=== PATIENT | female | born 1980 | race Asian ===

== ENCOUNTER 2016-07-04 14:38 | Inpatient (IN) | payer SELFPAY ==
[~2016-07-04] VITALS: Ht 162.6 cm; Wt 54.4 kg
[~2016-07-04 14:38] MED LIST: UNOBMED
[2016-07-04 14:56] VITALS: BP 137/77
--- NOTE | 2016-07-04 14:58 | Emergency Room Report ---
History of Present Illness General Chief Complaint: Dyspnea/Respdistress Source: Patient, EMS Present Illness HPI Patient presents with complaints of chest pain right-sided patient has a history of asthma Has had cold symptoms for the past 4 days however recently she began having increased pain with cough and inspiration Denies any vomiting or diarrhea She feels dehydrated Denies any neck pain or photophobia denies any recent travel denies any leg swelling Pain is 6/10 localized to the right mid chest area Allergies: Coded Allergies: ASPIRIN (Verified Allergy, Severe, dyspnea, 07/04/16) IBUPROFEN (Verified Allergy, Severe, dyspnea, 07/04/16) MORPHINE (Verified Allergy, Unknown, 07/04/16) PENICILLINS (Verified Allergy, Unknown, 07/04/16) Patient History Past Medical History: see triage record Pertinent Family History: none Reviewed Nursing Documentation: PMH: Agreed, PSxH: Agreed Nursing Documentation-PMH Hx Asthma: Yes Review of Systems All Other Systems: negative except mentioned in HPI Physical Exam Vital Signs Date Time Temp Pulse Resp B/P Pulse Ox O2 Delivery O2 Flow Rate FiO2 07/04/16 14:32 117 26 137/77 93 [id number] EP Interpretation: reviewed, normal General Appearance: mild distress - Appears uncomfortable and in pain Head: normocephalic, atraumatic Eyes: bilateral eye EOMI, bilateral eye PERRL ENT: hearing grossly normal, normal pharynx, TMs + canals normal, uvula midline Neck: full range of motion, supple, no meningismus, no bony tend Respiratory: no rhonchi, no respiratory distress, no retraction, no accessory muscle use, wheezing - Diffusely Cardiovascular #1: normal peripheral pulses, regular rate, rhythm, no edema, no gallop, no JVD, no murmur Gastrointestinal: normal bowel sounds, non tender, soft, no mass, no organomegaly, non-distended, no guarding, no hernia, no pulsatile mass, no rebound Genitourinary: no CVA tenderness Musculoskeletal: normal inspection Neurologic: oriented x3, responsive, electronic assembler III-XII nml as tested, motor strength/ tone normal, sensory intact Psychiatric: mood/affect normal Skin: normal color, no rash, warm/dry, palpation normal Lymphatic: normal inspection, no adenopathy Procedures Critical Care Time Critical Care Time 50 minutes for critical presentation worsening respiratory distress requiring multiple re\re evaluations not including any procedural time Medical Decision Making Diagnostic Impression: Primary Impression: Respiratory distress Additional Impression: Acute asthma exacerbation ER Course Patient is a fairly complex patient with multiple differential to consideration including but not limited to cardiac cardiopulmonary and vascular emergencies Initially the patient was provided with repeat breathing treatments she continued to complain of discomfort in the right mid upper chest area Patient was also provided with Toradol Patient appears to have worsened at that point Further magnesium and breathing treatments were provided CT angiogram chest was obtained for pulmonary embolism And there was no obvious findings At a later time after further questioning patient reports that she is allergic to aspirin and Motrin I did have a discussion with her and the family regarding the importance of providing allergy medication As this is life threatening and likely cause some of her reaction after receiving Toradol Patient also reports allergies to morphine After further intervention patient has improved However still showing signs of asthma exacerbation And admitted for further inpatient care Labs Test 07/04/16 15:00 07/04/16 16:09 White Blood Count 8.7 K/UL (4.8-10.8) Red Blood Count 4.66 M/UL (4.20-5.40) Hemoglobin 14.2 G/DL (12.0-16.0) Hematocrit 42.5 % (37.0-47.0) Mean Corpuscular Volume 91 FL (80-99) Mean Corpuscular Hemoglobin 30.6 PG (27.0-31.0) Mean Corpuscular Hemoglobin Concent 33.5 G/DL (32.0-36.0) Red Cell Distribution Width 11.1 % (11.6-14.8) Platelet Count 373 K/UL (150-450) Mean Platelet Volume 6.5 FL (6.5-10.1) Neutrophils (%) (Auto) % (45.0-75.0) Lymphocytes (%) (Auto) % (20.0-45.0) Monocytes (%) (Auto) % (1.0-10.0) Eosinophils (%) (Auto) % (0.0-3.0) Basophils (%) (Auto) % (0.0-2.0) Differential Total Cells Counted 100 Neutrophils % (Manual) 45 % (45-75) Lymphocytes % (Manual) 25 % (20-45) Monocytes % (Manual) 5 % (1-10) Eosinophils % (Manual) 24 % (0-3) Basophils % (Manual) 0 % (0-2) Band Neutrophils 1 % (0-8) Platelet Estimate Adequate Platelet Morphology Normal Red Blood Cell Morphology Normal D-Dimer 588 ng/mL (<500) Sodium Level 140 mEQ/L (135-145) Potassium Level 4.0 mEQ/L (3.4-4.9) Chloride Level 99 mEQ/L (98-107) Carbon Dioxide Level 27 mEQ/L (20-30) Anion Gap 14 (5-15) Blood Urea Nitrogen 5 mg/dL (7-23) Creatinine 0.7 mg/dL (0.5-0.9) Estimat Glomerular Filtration Rate > 60 mL/min (>60) Glucose Level 127 mg/dL (74-106) Calcium Level 9.3 mg/dL (8.6-10.2) Total Bilirubin 0.4 mg/dL (0.0-1.2) Aspartate Amino Transf (AST/SGOT) 46 U/L (5-40) Alanine Aminotransferase (ALT/SGPT) 57 U/L (3-33) Alkaline Phosphatase 78 U/L (35-104) Total Creatine Kinase 287 U/L (26-140) Creatine Kinase MB 4.9 ng/mL (< 3.8) Creatine Kinase MB Relative Index 1.7 Troponin I < 0.30 ng/mL (<=0.30) Total Protein 6.1 g/dL (6.6-8.7) Albumin 3.9 g/dL (3.5-5.2) Globulin 2.2 g/dL Albumin/Globulin Ratio 1.7 (1.0-2.7) Urine HCG, Qualitative Negative EKG Diagnostic Results Rate: tachycardiac Rhythm: other - Sinus tach ST Segments: other - Nonspecific ST and T-wave changes Rhythm Strip Diag. Results EP Interpretation: yes Rate: 135 Rhythm: no PVC's, no ectopy, other - sinus tach Chest X-Ray Diagnostic Results EP Interpretation: Yes Findings: no consolidation, no effusion, no pneumothorax Number of Views: 1 CT/MRI/US Diagnostic Results CT/MRI/US Diagnostic Results : Impression CT chest: Suboptimal, no obvious central PE Last Vital Signs Date Time Temp Pulse Resp B/P Pulse Ox O2 Delivery O2 Flow Rate FiO2 07/04/16 14:32 117 26 137/77 93 Disposition: ADMITTED INPATIENT Condition: Serious YANET WARD D.O.b 6, 2017 14:58
[2016-07-04] MEDS ORDERED: Levalbuterol Inh UD 1.25mg/0.5ml HHN ONE ×2 (15:00→16:00)
[2016-07-04] MEDS ORDERED: Solu-MEDROL 125mg Inj IVP ONE (15:00)
[2016-07-04] MEDS ORDERED: Ketorolac 30mg Inj IV ONE (15:00)
[2016-07-04 15:31] LABS: MEAN CORPUSCULAR HEMOGLOBIN 30.6 PG (27.0-31.0); MEAN CORPUSCULAR HGB CONC 33.5 G/DL (32.0-36.0); MEAN CORPUSCULAR VOLUME 91 FL (80-99); MEAN PLATELET VOLUME 6.5 FL (6.5-10.1); PLATELET COUNT 373 K/UL (150-450); RED BLOOD COUNT 4.66 M/UL (4.20-5.40); RED CELL DISTRIBUTION WIDTH 11.1 % (11.6-14.8); WHITE BLOOD COUNT 8.7 K/UL (4.8-10.8)
[2016-07-04 15:47] LABS: TROPONIN I < 0.30 ng/mL (<=0.30)
[2016-07-04 15:51] LABS: ALANINE AMINOTRANSFERASE 57 U/L (3-33); ALBUMIN/GLOBULIN RATIO 1.7 (1.0-2.7); ANION GAP 14 (5-15); ASPARTATE AMINO TRANSFERASE 46 U/L (5-40); CALCIUM 9.3 mg/dL (8.6-10.2); CARBON DIOXIDE 27 mEQ/L (20-30); CHLORIDE 99 mEQ/L (98-107); CREATININE 0.7 mg/dL (0.5-0.9); GLOMERULAR FILTRATION RATE > 60 mL/min (>60); HEMOLYSIS 2; SODIUM 140 mEQ/L (135-145); TOTAL PROTEIN 6.1 g/dL (6.6-8.7)
[2016-07-04 16:00] VITALS: BP 127/70
[2016-07-04] MEDS ORDERED: Diazepam 10mg/2ml Inj IV ONE (16:00)
[2016-07-04 16:01] LABS: CKMB 4.9 ng/mL (< 3.8)
[2016-07-04] MEDS ORDERED: Enoxaparin 60mg Inj SUBQ ONE (16:15)
[2016-07-04] MEDS ORDERED: EPINEPHrine 1mg/1ml Amp SUBQ ONE (16:15)
[2016-07-04] MEDS ORDERED: DiphenhydrAMINE 50mg/ml Inj IVP ONE (16:45)
[2016-07-04 16:46] LABS: BAND NEUTROPHILS % (MANUAL) 1 % (0-8); BASOPHILS % (MANUAL) 0 % (0-2); EOSINOPHILS % (MANUAL) 24 % (0-3); LYMPHOCYTES % (MANUAL) 25 % (20-45); NEUTROPHILS % (MANUAL) 45 % (45-75); PLATELET ESTIMATE ADEQUATE; TOTAL CELLS COUNTED 100
[2016-07-04 16:47] LABS: PLATELET MORPHOLOGY NORMAL
[2016-07-04 17:00] VITALS: BP 128/74
[2016-07-04 18:00] VITALS: BP 138/79
[2016-07-04] MEDS ORDERED: Norco 10mg/325mg tab ORAL ONE (18:30)
[2016-07-04] MEDS ORDERED: BENADRYL25 M3 PO (18:56)
[2016-07-04] MEDS ORDERED: ARMOUR THYROID30 MG ORAL (18:56)
[2016-07-04 19:00] VITALS: BP 141/94
[2016-07-04 20:00] VITALS: BP 140/78
[2016-07-04] MEDS ORDERED: LORazepam Inj 2mg/ml 1ml IV PRN (20:45)
[2016-07-04] MEDS ORDERED: Nitroglycerin Subl 0.4mg tab (Bottle Of 25) SL PRN (20:45)
[2016-07-04] MEDS ORDERED: Norco 5mg/325mg tab ORAL PRN (21:30)
[2016-07-04] MEDS: Theophylline ER 100mg ORAL SCH (21:40)
[2016-07-04] MEDS ORDERED: Heparin 5000 units/ml inj SUBQ SCH (22:00)
[2016-07-04] MEDS: NovoLOG Insulin Flexpen SUBQ SCH (22:08)
[2016-07-04] MEDS: DuoNeb 0.5-3(2.5)mg/3ml neb HHN PRN (23:39)
[2016-07-04] MEDS: Solu-MEDROL 125mg Inj IV SCH (23:51)
[2016-07-05] VITALS: BP 129/106
[2016-07-05] MEDS: DuoNeb 0.5-3(2.5)mg/3ml neb HHN PRN ×2 (05:21→21:24)
[2016-07-05] MEDS: Solu-MEDROL 125mg Inj IV SCH ×2 (05:39→22:03)
[2016-07-05] MEDS: NovoLOG Insulin Flexpen SUBQ SCH ×4 (06:28→22:05)
[2016-07-05 08:06] VITALS: BP 130/58
[2016-07-05] MEDS: Theophylline ER 100mg ORAL SCH (08:52)
--- NOTE | 2016-07-05 09:09 | Diagnostic Imaging Report ---
ndication: SOB Technique: IV administration nonionic contrast. Spiral acquisitions obtained from the lung bases to the lung apices. Multiplanar and 3-D reconstructions were generated. Total dose length product 730 mGycm. CTDIvol(s) 12, 12, 88, 20 mGy Comparison: None Findings: Pulmonary arterial opacification is suboptimal, essentially nondiagnostic or large central pulmonary emboli. No gross large vessel Central pulmonary emboli are demonstrated however. There is also motion artifact degrading the images. No evidence of thoracic aortic aneurysm or dissection. No pulmonary arterial dilatation or right ventricular dilatation. Some pleural and parenchymal scarring is seen in the lung apices bilaterally. There are scattered areas of groundglass opacity, primarily in the right middle lobe and lingula. This may to some extent be related to respiratory motion artifact. The remainder the lungs and pleural space are clear. No effusions, nodules, masses, or dense consolidation demonstrated. The heart size is normal. No evidence of pericardial effusion. There is some edema of the mediastinal fat. No mediastinal or hilar mass or adenopathy demonstrated. There are bilateral breast implants. No axillary mass or adenopathy. Chest wall mass or adenopathy. The included upper abdominal viscera are unremarkable Impression: Very limited exam, peripheral pulmonary emboli not excludable. No gross central pulmonary emboli Minimal nonspecific bilateral pulmonary parenchymal groundglass opacities, suspect infarct artifactual Bilateral breast implants This agrees with the preliminary interpretation provided overnight by Dr. Diaz The CT scanner at [facility] is accredited by the [employer] and the scans are performed using protocols designed to limit radiation exposure to as low as reasonably achievable to attain images of sufficient resolution adequate for diagnostic evaluation.
--- NOTE | 2016-07-05 09:09 | Diagnostic Imaging Report ---
Indication: Chest pain Technique: One view of the chest Comparison: none Findings: Lungs and pleural spaces are clear. Heart size is normal. Is evidence of bilateral breast implants Impression: No acute process
[2016-07-05] MEDS: Promethazine Plain 6.25mg/5ml ORAL PRN (10:04)
[2016-07-05 11:29] VITALS: BP 121/71
--- NOTE | 2016-07-05 11:32 | History and Physical ---
History of Present Illness General Date patient seen: Jul 05, 2016 Reason for Hospitalization: Dyspnea/Respdistress Present Illness HPI 35 year old female with hx of Asthma, presented to ER with CC of chest pain right-sided, cold symptoms for the past 4 days She had a CT angio in ER which ruled out PE but showed some pleural based infiltrate. Allergies: Coded Allergies: ASPIRIN (Verified Allergy, Severe, dyspnea, 07/04/16) IBUPROFEN (Verified Allergy, Severe, dyspnea, 07/04/16) MORPHINE (Verified Allergy, Unknown, 07/04/16) PENICILLINS (Verified Allergy, Unknown, 07/04/16) Medication History Scheduled Thyroid* (Starke Thyroid*), 30 MG ORAL DAILY, (Reported) Miscellaneous Medications Diphenhydramine HCl (Benadryl), 50 MG PO, (Reported) Patient History Healthcare decision maker Resuscitation status Full Code Advanced Directive on File Past Medical/Surgical History Past Medical/Surgical History: (1) Hypothyroidism Review of Systems All Other Systems: negative except mentioned in HPI Physical Exam General Appearance: WD/WN Lines, tubes and drains: peripheral, central line HEENT: normocephalic, atraumatic Neck: non-tender, normal alignment Respiratory/Chest: chest wall non-tender, lungs clear Breasts: no masses Cardiovascular/Chest: normal rate Abdomen: normal bowel sounds, non tender Extremities: normal range of motion Last 24 Hour Vital Signs Date Time Temp Pulse Resp B/P Pulse Ox O2 Delivery O2 Flow Rate FiO2 07/05/16 10:57 110 20 95 Room Air 21 07/05/16 10:48 110 20 95 07/05/16 08:06 97.7 97 18 130/58 96 Room Air 07/05/16 07:43 104 07/05/16 07:23 110 20 Room Air 21 07/05/16 05:22 21 07/05/16 05:22 119 20 96 Room Air 21 07/05/16 05:21 118 20 95 Room Air 21 07/05/16 04:00 108 07/05/16 00:00 97.5 128 20 129/106 96 Room Air 07/05/16 00:00 130 07/04/16 23:44 125 20 95 Room Air 21 07/04/16 23:43 21 07/04/16 23:42 129 20 95 Room Air 21 07/04/16 23:41 127 20 Room Air 21 07/04/16 20:00 100.4 128 22 140/78 93 Room Air 07/04/16 19:05 99.0 128 25 138/79 97 Simple Mask 6.0 21 07/04/16 19:00 128 24 141/94 94 Simple Mask 6.0 07/04/16 18:52 99.0 07/04/16 18:00 134 25 138/79 97 Simple Mask 6.0 07/04/16 17:03 99.0 07/04/16 17:00 102 24 128/74 98 Nasal Cannula 2.0 07/04/16 16:09 123 20 93 Room Air 21 07/04/16 16:05 21 07/04/16 16:05 97 22 88 Room Air 21 07/04/16 16:00 108 28 127/70 94 Nasal Cannula 2.0 07/04/16 15:51 89 20 100 Room Air 21 07/04/16 15:15 21 07/04/16 15:15 82 20 100 Room Air 21 07/04/16 15:15 89 20 Room Air 21 07/04/16 14:56 117 26 07/04/16 14:56 99.0 114 26 137/77 93 07/04/16 14:32 117 26 137/77 93 Intake and Output 07/04/16 07/05/16 19:00 07:00 Intake Total 3200 ml 600 ml Balance 3200 ml 600 ml Intake Oral 500 ml IV Total 3200 ml 100 ml # Voids 1 1 Laboratory Tests Test 07/04/16 15:00 07/04/16 16:09 White Blood Count 8.7 K/UL (4.8-10.8) Red Blood Count 4.66 M/UL (4.20-5.40) Hemoglobin 14.2 G/DL (12.0-16.0) Hematocrit 42.5 % (37.0-47.0) Mean Corpuscular Volume 91 FL (80-99) Mean Corpuscular Hemoglobin 30.6 PG (27.0-31.0) Mean Corpuscular Hemoglobin Concent 33.5 G/DL (32.0-36.0) Red Cell Distribution Width 11.1 % (11.6-14.8) L Platelet Count 373 K/UL (150-450) Mean Platelet Volume 6.5 FL (6.5-10.1) Neutrophils (%) (Auto) % (45.0-75.0) Lymphocytes (%) (Auto) % (20.0-45.0) Monocytes (%) (Auto) % (1.0-10.0) Eosinophils (%) (Auto) % (0.0-3.0) Basophils (%) (Auto) % (0.0-2.0) Differential Total Cells Counted 100 Neutrophils % (Manual) 45 % (45-75) Lymphocytes % (Manual) 25 % (20-45) Monocytes % (Manual) 5 % (1-10) Eosinophils % (Manual) 24 % (0-3) H Basophils % (Manual) 0 % (0-2) Band Neutrophils 1 % (0-8) Platelet Estimate Adequate Platelet Morphology Normal Red Blood Cell Morphology Normal D-Dimer 588 ng/mL (<500) H Sodium Level 140 mEQ/L (135-145) Potassium Level 4.0 mEQ/L (3.4-4.9) Chloride Level 99 mEQ/L (98-107) Carbon Dioxide Level 27 mEQ/L (20-30) Anion Gap 14 (5-15) Blood Urea Nitrogen 5 mg/dL (7-23) L Creatinine 0.7 mg/dL (0.5-0.9) Estimat Glomerular Filtration Rate > 60 mL/min (>60) Glucose Level 127 mg/dL (74-106) H Calcium Level 9.3 mg/dL (8.6-10.2) Total Bilirubin 0.4 mg/dL (0.0-1.2) Aspartate Amino Transf (AST/SGOT) 46 U/L (5-40) H Alanine Aminotransferase (ALT/SGPT) 57 U/L (3-33) H Alkaline Phosphatase 78 U/L (35-104) Total Creatine Kinase 287 U/L (26-140) H Creatine Kinase MB 4.9 ng/mL (< 3.8) H Creatine Kinase MB Relative Index 1.7 Troponin I < 0.30 ng/mL (<=0.30) Total Protein 6.1 g/dL (6.6-8.7) L Albumin 3.9 g/dL (3.5-5.2) Globulin 2.2 g/dL Albumin/Globulin Ratio 1.7 (1.0-2.7) Urine HCG, Qualitative Negative Microbiology Date/Time Source Procedure Growth Status 07/04/16 16:30 Nasal Nares Influenza Types A,B Antigen (ULISES) - Final Complete Height (Feet): 5 Height (Inches): 4.00 Weight (Pounds): 120 Medications Current Medications Medications (Trade) Dose Ordered Sig/Dipti Route PRN Reason Start Time Stop Time Status Last Admin Dose Admin Acetaminophen (Tylenol) 650 mg Q4H PRN ORAL Mild Pain/Temp > 100.5 07/04/16 22:30 08/03/16 22:29 07/05/16 10:08 Albuterol/ Ipratropium (DuoNeb 0.5-3(2.5)mg/3ml) 3 ml Q4H PRN HHN dyspnea 07/04/16 20:45 07/09/16 20:44 07/05/16 05:21 Dextrose STAT PRN IV Hypoglycemia 07/04/16 20:45 08/03/16 20:44 Insulin Aspart (NovoLOG) BEFORE MEALS AND HS SUBQ 07/04/16 22:00 08/03/16 21:59 07/05/16 06:28 Levofloxacin (Levaquin) 100 ml @ 100 mls/hr Q24H IVPB 07/04/16 22:00 07/11/16 21:59 07/04/16 22:02 Lorazepam (Ativan 2mg/ml 1ml) 0.5 mg Q4H PRN IV For Anxiety 07/04/16 20:45 07/11/16 20:44 Methylprednisolone Sodium Succinate (Solu-MEDROL) 60 mg EVERY 12 HOURS IV 07/05/16 21:00 08/04/16 20:59 UNV Nitroglycerin (Ntg) 0.4 mg Q5M X 3 DOSES PRN SL Prn Chest Pain 07/04/16 20:45 08/03/16 20:44 Ondansetron HCl (Zofran) 4 mg Q6H PRN IVP Nausea & Vomiting 07/04/16 20:45 08/03/16 20:44 Promethazine HCl (Phenergan Plain) 6.25 mg Q4HR PRN ORAL For Cough 07/05/16 08:15 08/04/16 08:14 07/05/16 10:04 Temazepam (Restoril) 15 mg HSPRN PRN ORAL Insomnia 07/04/16 20:45 07/11/16 20:44 Assessment/Plan Problem List: (1) Acute asthma exacerbation ICD Codes: J45.901 - Unspecified asthma with (acute) exacerbation SNOMED: 135655363 (2) Pneumonia ICD Codes: J18.9 - Pneumonia, unspecified organism SNOMED: 703387990 Assessment/Plan Iv antibiotics respiratory treatment IV steroids DINO MORENO Jul 05, 2016 11:32
[2016-07-05 16:00] VITALS: BP 117/59
[2016-07-05 20:00] VITALS: BP 132/65
[2016-07-06 00:14] VITALS: BP 128/54
[2016-07-06 04:09] VITALS: BP 126/60
[2016-07-06] MEDS: NovoLOG Insulin Flexpen SUBQ SCH ×4 (06:04→21:22)
[2016-07-06 07:05] LABS: MEAN CORPUSCULAR HEMOGLOBIN 32.2 PG (27.0-31.0); MEAN CORPUSCULAR HGB CONC 35.3 G/DL (32.0-36.0); MEAN CORPUSCULAR VOLUME 91 FL (80-99); MEAN PLATELET VOLUME 7.2 FL (6.5-10.1); PLATELET COUNT 318 K/UL (150-450); RED BLOOD COUNT 4.02 M/UL (4.20-5.40); RED CELL DISTRIBUTION WIDTH 11.3 % (11.6-14.8); WHITE BLOOD COUNT 9.3 K/UL (4.8-10.8)
[2016-07-06 07:28] LABS: ALANINE AMINOTRANSFERASE 55 U/L (3-33); ALBUMIN/GLOBULIN RATIO 1.3 (1.0-2.7); ANION GAP 14 (5-15); ASPARTATE AMINO TRANSFERASE 38 U/L (5-40); CALCIUM 9.4 mg/dL (8.6-10.2); CARBON DIOXIDE 25 mEQ/L (20-30); CHLORIDE 102 mEQ/L (98-107); CREATININE 0.6 mg/dL (0.5-0.9); GLOMERULAR FILTRATION RATE > 60 mL/min (>60); HEMOLYSIS 1; MAGNESIUM 1.9 mg/dL (1.7-2.5); PHOSPHORUS 3.3 mg/dL (2.5-4.8); POTASSIUM 4.7 mEQ/L (3.4-4.9); SODIUM 141 mEQ/L (135-145); TOTAL PROTEIN 6.3 g/dL (6.6-8.7)
[2016-07-06 08:00] VITALS: BP 143/71
[2016-07-06] MEDS: Solu-MEDROL 125mg Inj IV SCH ×2 (09:42→21:16)
[2016-07-06 10:19] LABS: BAND NEUTROPHILS % (MANUAL) 0 % (0-8); BASOPHILS % (MANUAL) 0 % (0-2); EOSINOPHILS % (MANUAL) 0 % (0-3); HYPOCHROMASIA 1+; LYMPHOCYTES % (MANUAL) 11 % (20-45); NEUTROPHILS % (MANUAL) 89 % (45-75); PLATELET ESTIMATE ADEQUATE; PLATELET MORPHOLOGY NORMAL; TOTAL CELLS COUNTED 100
[2016-07-06] MEDS: DuoNeb 0.5-3(2.5)mg/3ml neb HHN PRN (11:15)
[2016-07-06 11:50] LABS: OTHERS PATHOLOGIST COMMENT
[2016-07-06 12:00] VITALS: BP 146/78
--- NOTE | 2016-07-06 13:45 | Pulmonology Progress Note ---
Assessment/Plan Problems: (1) Acute asthma exacerbation (2) Pneumonia (3) Acute chest pain (4) Tachycardia Assessment/Plan continue antibiotics sputum is negative CT angio was negative for PE will get V/q Scan in case, ct angio was false negative Subjective ROS Limited/Unobtainable: No Interval Events: still episodes of tachycardia, cough Constitutional: Reports: no symptoms HEENT: Repors: no symptoms Allergies: Coded Allergies: ASPIRIN (Verified Allergy, Severe, dyspnea, 07/04/16) IBUPROFEN (Verified Allergy, Severe, dyspnea, 07/04/16) MORPHINE (Verified Allergy, Unknown, 07/04/16) PENICILLINS (Verified Allergy, Unknown, 07/04/16) Objective Last 24 Hour Vital Signs Date Time Temp Pulse Resp B/P Pulse Ox O2 Delivery O2 Flow Rate FiO2 07/06/16 12:00 96.7 113 17 146/78 98 Room Air 120 07/06/16 11:19 99 18 97 Room Air 21 07/06/16 11:15 21 07/06/16 11:15 97 18 95 Room Air 21 07/06/16 08:00 98.1 68 18 143/71 95 Room Air 70 07/06/16 07:44 90 18 Room Air 21 07/06/16 04:09 98.8 90 19 126/60 97 Room Air 07/06/16 03:28 74 07/06/16 03:20 Room Air 07/06/16 03:20 Room Air 07/06/16 00:15 76 07/06/16 00:14 98.2 97 19 128/54 98 Room Air 07/05/16 23:00 Room Air 07/05/16 23:00 Room Air 07/05/16 21:33 92 18 96 Room Air 21 07/05/16 21:23 21 07/05/16 21:22 111 18 94 Room Air 21 07/05/16 20:49 97 18 Room Air 21 07/05/16 20:01 Room Air 07/05/16 20:00 97 07/05/16 20:00 98.2 84 20 132/65 95 Room Air 07/05/16 20:00 Room Air 07/05/16 19:00 Room Air 07/05/16 16:00 105 20 117/59 96 Room Air 07/05/16 16:00 114 07/05/16 14:40 100 20 95 07/05/16 14:40 100 20 95 Room Air 21 Intake and Output 07/05/16 07/06/16 19:00 07:00 Intake Total 460 ml 260 ml Balance 460 ml 260 ml Intake Oral 460 ml 260 ml # Voids 3 2 General Appearance: WD/WN HEENT: normocephalic, atraumatic Respiratory/Chest: chest wall non-tender, normal breath sounds Cardiovascular: normal peripheral pulses, normal rate Abdomen: normal bowel sounds, no organomegaly Genitourinary: normal external genitalia Extremities: no clubbing Skin: no lesions Microbiology Date/Time Source Procedure Growth Status 07/04/16 15:05 Blood Blood Culture - Preliminary NO GROWTH AFTER 24 HOURS Resulted 07/04/16 15:00 Blood Blood Culture - Preliminary NO GROWTH AFTER 24 HOURS Resulted 07/05/16 04:55 Sputum Gram Stain - Final Resulted 07/05/16 04:55 Sputum Sputum Culture - Preliminary NORMAL UPPER RESPIRATORY JONAH AT 24 ... Resulted 07/04/16 16:30 Nasal Nares Influenza Types A,B Antigen (ULISES) - Final Complete Laboratory Tests 07/06/16 05:25: White Blood Count 9.3, Red Blood Count 4.02L, Hemoglobin 13.0, Hematocrit 36.7L , Mean Corpuscular Volume 91, Mean Corpuscular Hemoglobin 32.2H, Mean Corpuscular Hemoglobin Concent 35.3, Red Cell Distribution Width 11.3L, Platelet Count 318, Mean Platelet Volume 7.2, Neutrophils (%) (Auto) , Lymphocytes (%) (Auto) , Monocytes (%) (Auto) , Eosinophils (%) (Auto) , Basophils (%) (Auto) , Differential Total Cells Counted 100, Neutrophils % ( Manual) 89H, Lymphocytes % (Manual) 11L, Monocytes % (Manual) 0L, Eosinophils % (Manual) 0, Basophils % (Manual) 0, Band Neutrophils 0, Platelet Estimate Adequate, Platelet Morphology Normal, Hypochromasia 1+, Sodium Level 141, Potassium Level 4.7, Chloride Level 102, Carbon Dioxide Level 25, Anion Gap 14, Blood Urea Nitrogen 6L, Creatinine 0.6, Estimat Glomerular Filtration Rate > 60 , Glucose Level 198H, Calcium Level 9.4, Phosphorus Level 3.3, Magnesium Level 1.9, Total Bilirubin 0.3, Aspartate Amino Transf (AST/SGOT) 38, Alanine Aminotransferase (ALT/SGPT) 55H, Alkaline Phosphatase 70, Total Protein 6.3L, Albumin 3.6, Globulin 2.7, Albumin/Globulin Ratio 1.3 Current Medications Medications (Trade) Dose Ordered Sig/Dipti Route PRN Reason Start Time Stop Time Status Last Admin Dose Admin Acetaminophen (Tylenol) 650 mg Q4H PRN ORAL Mild Pain/Temp > 100.5 07/04/16 22:30 08/03/16 22:29 07/06/16 13:04 Albuterol/ Ipratropium (DuoNeb 0.5-3(2.5)mg/3ml) 3 ml Q4H PRN HHN dyspnea 07/04/16 20:45 07/09/16 20:44 07/06/16 11:15 Dextrose STAT PRN IV Hypoglycemia 07/04/16 20:45 08/03/16 20:44 Insulin Aspart (NovoLOG) BEFORE MEALS AND HS SUBQ 07/04/16 22:00 08/03/16 21:59 07/06/16 12:14 Levofloxacin (Levaquin) 100 ml @ 100 mls/hr Q24H IVPB 07/04/16 22:00 07/11/16 21:59 07/05/16 22:05 Lorazepam (Ativan 2mg/ml 1ml) 0.5 mg Q4H PRN IV For Anxiety 07/04/16 20:45 07/11/16 20:44 Methylprednisolone Sodium Succinate (Solu-MEDROL) 60 mg EVERY 12 HOURS IV 07/05/16 21:00 08/04/16 20:59 07/06/16 09:42 Nitroglycerin (Ntg) 0.4 mg Q5M X 3 DOSES PRN SL Prn Chest Pain 07/04/16 20:45 08/03/16 20:44 Ondansetron HCl (Zofran) 4 mg Q6H PRN IVP Nausea & Vomiting 07/04/16 20:45 08/03/16 20:44 Promethazine HCl (Phenergan Plain) 6.25 mg Q4HR PRN ORAL For Cough 07/05/16 08:15 08/04/16 08:14 07/05/16 10:04 Temazepam (Restoril) 15 mg HSPRN PRN ORAL Insomnia 07/04/16 20:45 07/11/16 20:44 DINO MORENO Jul 06, 2016 13:45
[2016-07-06 16:35] VITALS: BP 142/76
--- NOTE | 2016-07-06 17:00 | Consultation ---
Consult Note Consult Note ID CONSULT: Norma# [id number] Assessment/Plan ASSESSMENT: 35 y/o female with: // URI - SCx NRF - CXR: Lungs and pleural spaces are clear - negative: influenza // Low grade fever x1 - resolved, no leukocytosis ( on steroids ) // Asthma exacerbation, on steroids - VQ: Low probability of pulmonary embolism - CTA: Very limited exam, peripheral pulmonary emboli not excludable. No gross central pulmonary emboli. Minimal nonspecific bilateral pulmonary parenchymal groundglass opacities, suspect artifactual // Elevated LFTs - mild, asymptomatic // Mod-sev TR // Severe pulmonary HTN // PCN allergy // Full Code PLAN: - ok to DC on levaquin d# 2 / 5 from ID standpoint - taper steroids per pulm - f/u cultures - monitor CBC, temperatures - monitor BMP - monitor CXR Thanks! Will follow OSIRIS MATHIS Jul 06, 2016 17:00
--- NOTE | 2016-07-06 17:09 | Diagnostic Imaging Report ---
Indications: Shortness of breath and cough Technique: Planar imaging of pulmonary perfusion performed with intravenous administration of 5.5 mCi 90 9M technetium-MAA. Planar imaging of pulmonary ventilation performed with inhalation of 43 mCi 90 9M technetium-aerosolized DTPA.. Findings: Comparison: Chest radiograph 07/04/2016 Ventilation images demonstrate homogeneous, symmetric distribution of radiotracer throughout both lungs. No defects are demonstrated. No significant retention of radiotracer is demonstrated on washout images. Perfusion images likewise demonstrate homogeneous, symmetric distribution of radiotracer throughout both lungs. No mismatched segmental or subsegmental perfusion defects are demonstrated. Impression: Low probability of pulmonary embolism
[2016-07-06] MEDS: Promethazine Plain 6.25mg/5ml ORAL PRN (18:24)
[2016-07-06 20:00] VITALS: BP 143/75
--- NOTE | 2016-07-06 21:58 | Consultation ---
DATE OF CONSULTATION: 07/06/2016 INFECTIOUS DISEASE CONSULTATION CONSULTING PHYSICIAN: Khoa Murdock M.D. REFERRING PHYSICIAN: Julianne Eduardo M.D. REASON FOR CONSULTATION: Fever. HISTORY OF PRESENT ILLNESS: This is a 35-year-old female with a history of asthma, admitted on 07/04/2016 with shortness of breath. Chest x-ray was normal. CT angiogram was a suboptimal study, but no evidence of pulmonary embolus. A V/Q scan just completed shows low probability for pulmonary embolus. Breathing has improved. Hospital course complicated by low-grade fever x1, now resolved and no leukocytosis. Sputum culture is growing normal respiratory ena. Blood cultures, no growth to date. Influenza screen is negative. She is on Levaquin day #2 and ID now consulted to assist in the management. PAST MEDICAL HISTORY: Asthma. PAST SURGICAL HISTORY: Breast augmentation. FAMILY HISTORY: Noncontributory. SOCIAL HISTORY: Denies tobacco, alcohol, or illicit drug abuse. ALLERGIES: 1. Penicillin. 2. Aspirin. 3. Ibuprofen. 4. Morphine. MEDICATIONS: 1. Levaquin day #2 2. Solu-Medrol. REVIEW OF SYSTEMS: As per history of present illness. Ten systems reviewed. All pertinent positives and negatives noted. PHYSICAL EXAMINATION: VITAL SIGNS: Maximum temperature 100.4, blood pressure 142/76, heart rate in the 90s, respiratory rate 72, and saturating 97% on room air. GENERAL: In no apparent distress, nontoxic appearing. CARDIOVASCULAR: Regular rate and rhythm. No murmurs. PULMONARY: Clear to auscultation bilaterally. ABDOMINAL: Bowel sounds present. Soft, nondistended, and nontender. EXTREMITIES: No edema. SKIN: No rash. NEUROLOGICAL: Alert and oriented x3. Nonfocal. LABORATORY DATA: White blood cell count 9.3 with left shift, hemoglobin 13, and platelets 318,000. Sodium 141, potassium 4.7, chloride 102, bicarbonate 25, BUN 6, and creatinine 0.6. AST 38, ALT 55, alkaline phosphatase 70, and total bilirubin 6.3. Albumin 3.6. Troponin negative x1. MICROBIOLOGY: 1. On 07/05/2016, sputum culture, normal respiratory ena. 2. On 07/04/2016, blood culture, no growth to date. 3. On 07/04/2016, influenza screen negative. IMAGING: Reviewed. ASSESSMENT: 1. Upper respiratory infection. Sputum culture growing normal respiratory ena. Chest x-ray clear and influenza screen negative. 2. Low-grade fever x1, resolved and no leukocytosis. 3. Asthma exacerbation, on steroids. A V/Q scan and CT angiogram are negative for pulmonary embolus. 4. Elevated liver function tests, mild and asymptomatic. 5. Moderate to severe tricuspid regurgitation. 6. Severe pulmonary hypertension. 7. Penicillin allergy. 8. Full Code. PLAN: 1. Okay to discharge on Levaquin day #2 of 5 from an ID standpoint. 2. Taper steroids per Pulmonary. 3. Follow up cultures. 4. Monitor CBC and temperatures. 5. Monitor BMP. 6. Monitor chest x-ray. Thank you. We will follow. Khoa Murdock M.D. DR: XIOMARA JOB#: [id number] CC: Julianne Eduardo M.D.; Fax#: [phone] Alborzi, M.D ; Fax#: [phone]
[2016-07-07 00:30] VITALS: BP 149/98
[2016-07-07 04:07] VITALS: BP 142/78
[2016-07-07] MEDS: NovoLOG Insulin Flexpen SUBQ SCH ×2 (06:29→11:46)
[2016-07-07] MEDS: DuoNeb 0.5-3(2.5)mg/3ml neb HHN PRN (07:33)
[2016-07-07 08:00] VITALS: BP 145/83
[2016-07-07] MEDS: Solu-MEDROL 125mg Inj IV SCH (08:25)
[2016-07-07 12:00] VITALS: BP 132/80
[2016-07-07] MEDS ORDERED: Hydromorphone 0.5mg/0.5ml inj IVP PRN (12:30)
[2016-07-07] MEDS ORDERED: DiphenhydrAMINE 50mg/ml Inj IVP PRN (15:00)
--- NOTE | 2016-07-07 15:18 | Pulmonology Progress Note ---
Assessment/Plan Problems: (1) Acute asthma exacerbation (2) Pneumonia (3) Acute chest pain (4) Tachycardia Assessment/Plan continue antibiotics sputum is negative CT angio was negative for PE t V/q Scan negative dc home with oral abx and steroids Subjective ROS Limited/Unobtainable: No Interval Events: much better, vq scan was negative Allergies: Coded Allergies: ASPIRIN (Verified Allergy, Severe, dyspnea, 07/04/16) IBUPROFEN (Verified Allergy, Severe, dyspnea, 07/04/16) MORPHINE (Verified Allergy, Unknown, 07/04/16) PENICILLINS (Verified Allergy, Unknown, 07/04/16) Objective Last 24 Hour Vital Signs Date Time Temp Pulse Resp B/P Pulse Ox O2 Delivery O2 Flow Rate FiO2 07/07/16 12:00 97.1 86 17 132/80 95 Room Air 76 07/07/16 12:00 90 07/07/16 08:00 96 07/07/16 08:00 97.2 86 17 145/83 98 Room Air 83 07/07/16 07:32 98 19 91 Nasal Cannula 28 07/07/16 07:29 91 19 Nasal Cannula 28 07/07/16 04:07 98.3 81 19 142/78 95 Room Air 07/07/16 04:00 70 07/07/16 00:30 98.5 79 18 149/98 96 Room Air 07/07/16 00:00 69 07/06/16 20:00 97.7 102 20 143/75 97 Room Air 07/06/16 20:00 82 07/06/16 19:05 89 18 Room Air 21 07/06/16 16:35 98.1 97 22 142/76 97 Room Air Intake and Output 07/06/16 07/07/16 19:00 07:00 Intake Total 680 ml Output Total 420 ml Balance 260 ml Intake Oral 680 ml Output Urine Total 420 ml # Voids 1 1 General Appearance: WD/WN HEENT: normocephalic, anicteric Respiratory/Chest: chest wall non-tender, normal breath sounds Cardiovascular: normal peripheral pulses, normal rate Abdomen: normal bowel sounds, soft, non tender Genitourinary: normal external genitalia Skin: no lesions 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 Microbiology Date/Time Source Procedure Growth Status 07/05/16 04:55 Sputum Gram Stain - Final Complete 07/05/16 04:55 Sputum Sputum Culture - Final NORMAL UPPER RESPIRATORY JONAH PRESENT Complete 07/04/16 16:30 Nasal Nares Influenza Types A,B Antigen (ULISES) - Final Complete Current Medications Medications (Trade) Dose Ordered Sig/Dipti Route PRN Reason Start Time Stop Time Status Last Admin Dose Admin Acetaminophen (Tylenol) 650 mg Q4H PRN ORAL Mild Pain/Temp > 100.5 07/04/16 22:30 08/03/16 22:29 07/07/16 13:16 Albuterol/ Ipratropium (DuoNeb 0.5-3(2.5)mg/3ml) 3 ml Q4H PRN HHN dyspnea 07/04/16 20:45 07/09/16 20:44 07/07/16 07:33 Dextrose STAT PRN IV Hypoglycemia 07/04/16 20:45 08/03/16 20:44 Diphenhydramine HCl (Benadryl) 25 mg Q4H PRN IVP Itching 07/07/16 15:00 08/06/16 14:59 Hydromorphone HCl (Dilaudid) 0.5 mg Q3H PRN IVP PAIN 4-10 07/07/16 12:30 07/14/16 12:29 Insulin Aspart (NovoLOG) BEFORE MEALS AND HS SUBQ 07/04/16 22:00 08/03/16 21:59 07/07/16 11:46 Levofloxacin (Levaquin) 100 ml @ 100 mls/hr Q24H IVPB 07/04/16 22:00 07/11/16 21:59 07/06/16 21:24 Lorazepam (Ativan 2mg/ml 1ml) 0.5 mg Q4H PRN IV For Anxiety 07/04/16 20:45 07/11/16 20:44 Methylprednisolone Sodium Succinate (Solu-MEDROL) 60 mg EVERY 12 HOURS IV 07/05/16 21:00 08/04/16 20:59 07/07/16 08:25 Nitroglycerin (Ntg) 0.4 mg Q5M X 3 DOSES PRN SL Prn Chest Pain 07/04/16 20:45 08/03/16 20:44 Ondansetron HCl (Zofran) 4 mg Q6H PRN IVP Nausea & Vomiting 07/04/16 20:45 08/03/16 20:44 Promethazine HCl (Phenergan Plain) 6.25 mg Q4HR PRN ORAL For Cough 07/05/16 08:15 08/04/16 08:14 07/06/16 18:24 Temazepam (Restoril) 15 mg HSPRN PRN ORAL Insomnia 07/04/16 20:45 07/11/16 20:44 DINO MORENO Jul 07, 2016 15:18
[2016-07-07] MEDS ORDERED: PREDNISONE20 M1 PO (15:19)
[2016-07-07] MEDS ORDERED: VENTOLIN HFA18 GM INH (15:21)
[2016-07-07] MEDS ORDERED: ACETAMINOPHEN-1 EAC1 ORAL (15:21)
[2016-07-07] MEDS ORDERED: LEVOFLOXACIN500 MG ORAL (15:21)
[2016-07-07 16:00] VITALS: BP 138/80
--- NOTE | 2016-07-07 16:14 | Infectious Diseases Prog Note ---
Assessment/Plan Assessment/Plan ASSESSMENT: 35 y/o female with: // URI - SCx NRF, symptomatically improved - CXR: Lungs and pleural spaces are clear - negative: influenza // Low grade fever x1 - resolved, no leukocytosis ( on steroids ) // Asthma exacerbation, on steroids - VQ: Low probability of pulmonary embolism - CTA: Very limited exam, peripheral pulmonary emboli not excludable. No gross central pulmonary emboli. Minimal nonspecific bilateral pulmonary parenchymal groundglass opacities, suspect artifactual // Elevated LFTs - mild, asymptomatic // Mod-sev TR // Severe pulmonary HTN // PCN allergy // Full Code PLAN: - ok to DC on levaquin d# 3 / 5 from ID standpoint - taper steroids per pulm - f/u cultures - monitor CBC, temperatures - monitor BMP - monitor CXR Subjective Allergies: Coded Allergies: ASPIRIN (Verified Allergy, Severe, dyspnea, 07/04/16) IBUPROFEN (Verified Allergy, Severe, dyspnea, 07/04/16) MORPHINE (Verified Allergy, Unknown, 07/04/16) PENICILLINS (Verified Allergy, Unknown, 07/04/16) Subjective remains afebrile. breathing improved Objective Vital Signs Last 24 Hour Vital Signs Date Time Temp Pulse Resp B/P Pulse Ox O2 Delivery O2 Flow Rate FiO2 07/07/16 12:00 97.1 86 17 132/80 95 Room Air 76 07/07/16 12:00 90 07/07/16 08:00 96 07/07/16 08:00 97.2 86 17 145/83 98 Room Air 83 07/07/16 07:32 98 19 91 Nasal Cannula 28 07/07/16 07:29 91 19 Nasal Cannula 28 07/07/16 04:07 98.3 81 19 142/78 95 Room Air 07/07/16 04:00 70 07/07/16 00:30 98.5 79 18 149/98 96 Room Air 07/07/16 00:00 69 07/06/16 20:00 97.7 102 20 143/75 97 Room Air 07/06/16 20:00 82 07/06/16 19:05 89 18 Room Air 21 07/06/16 16:35 98.1 97 22 142/76 97 Room Air Height (Feet): 5 Height (Inches): 4.00 Weight (Pounds): 120 General Appearance: no acute distress Respiratory/Chest: no respiratory distress Cardiovascular: normal rate, regular rhythm Abdomen: normal bowel sounds, soft, non tender, non distended Microbiology Date/Time Source Procedure Growth Status 07/05/16 04:55 Sputum Gram Stain - Final Complete 07/05/16 04:55 Sputum Sputum Culture - Final NORMAL UPPER RESPIRATORY JONAH PRESENT Complete 07/04/16 16:30 Nasal Nares Influenza Types A,B Antigen (ULISES) - Final Complete Current Medications Medications (Trade) Dose Ordered Sig/Dipti Route PRN Reason Start Time Stop Time Status Last Admin Dose Admin Acetaminophen (Tylenol) 650 mg Q4H PRN ORAL Mild Pain/Temp > 100.5 07/04/16 22:30 08/03/16 22:29 07/07/16 13:16 Albuterol/ Ipratropium (DuoNeb 0.5-3(2.5)mg/3ml) 3 ml Q4H PRN HHN dyspnea 07/04/16 20:45 07/09/16 20:44 07/07/16 07:33 Dextrose STAT PRN IV Hypoglycemia 07/04/16 20:45 08/03/16 20:44 Diphenhydramine HCl (Benadryl) 25 mg Q4H PRN IVP Itching 07/07/16 15:00 08/06/16 14:59 Hydromorphone HCl (Dilaudid) 0.5 mg Q3H PRN IVP PAIN 4-10 07/07/16 12:30 07/14/16 12:29 Insulin Aspart (NovoLOG) BEFORE MEALS AND HS SUBQ 07/04/16 22:00 08/03/16 21:59 07/07/16 11:46 Levofloxacin (Levaquin) 100 ml @ 100 mls/hr Q24H IVPB 07/04/16 22:00 07/11/16 21:59 07/06/16 21:24 Lorazepam (Ativan 2mg/ml 1ml) 0.5 mg Q4H PRN IV For Anxiety 07/04/16 20:45 07/11/16 20:44 Methylprednisolone Sodium Succinate (Solu-MEDROL) 60 mg EVERY 12 HOURS IV 07/05/16 21:00 08/04/16 20:59 07/07/16 08:25 Nitroglycerin (Ntg) 0.4 mg Q5M X 3 DOSES PRN SL Prn Chest Pain 07/04/16 20:45 08/03/16 20:44 Ondansetron HCl (Zofran) 4 mg Q6H PRN IVP Nausea & Vomiting 07/04/16 20:45 08/03/16 20:44 Promethazine HCl (Phenergan Plain) 6.25 mg Q4HR PRN ORAL For Cough 07/05/16 08:15 08/04/16 08:14 07/06/16 18:24 Temazepam (Restoril) 15 mg HSPRN PRN ORAL Insomnia 07/04/16 20:45 07/11/16 20:44 OSIRIS MATHIS Jul 07, 2016 16:14
--- NOTE | 2016-07-08 21:42 | Discharge Summary ---
Discharge Summary Hospital Course Date of Admission Jul 04, 2016 at 16:18 Date of Discharge Jul 07, 2016 at 16:40 Admitting Diagnosis severe asthma HPI Johanna Portillo is a 35 year old female who was admitted on Jul 04, 2016 at 16:18 for Severe Asthma Hospital Course [id number] Discharge Discharge Disposition Patient was discharged to Home (01) Discharge Diagnoses: Geetha Wiggins NP Jul 08, 2016 21:42
--- NOTE | 2016-07-09 | Discharge Summary 2 SIG ---
DATE OF ADMISSION: 07/04/2016 DATE OF DISCHARGE: 07/07/2016 MANAGER MINING: Khoa Murdock M.D. BRIEF HOSPITAL COURSE: The patient is a 35-year-old female with history of asthma presented to ED complaining of chest pain right-sided and cold symptoms that has been ongoing for the past four days. She had a CT angiogram done at the ER, which ruled out PE, but showed some pleural based infiltrates. She was admitted and was given respiratory treatments and was started on IV steroids. Dr. Murdock was consulted and was given Levaquin and V/Q scan and CT angiogram were negative for pulmonary embolus. Influenza screen was negative. Sputum culture showed growth of normal upper respiratory ena. Blood culture did not isolate any growth. Steroids were tapered. The patient was eventually discharged home on p.o. Levaquin. FINAL DIAGNOSES: 1. Acute asthma exacerbation. 2. Pneumonia. 3. Acute chest pain. 4. Tachycardia. 5. Severe pulmonary hypertension. 6. Elevated liver transaminases. Julianne Eduardo M.D. I have been assigned to dictate discharge summary on this account and I was not involved in the patient's management. Geetha Wiggins N.P. DR: Linda JOB#: [id number] CC:
--- NOTE | 2016-07-09 15:26 | Cardiology Report ---
APPROVED REPORT EXAM: Two-dimensional and M-mode echocardiogram with Doppler and color Doppler. INDICATION Tachycardia M-Mode DIMENSIONS IVSd1.0 (0.7-1.1cm)Left Atrium (MM)3.7 (1.6-4.0cm) LVDd4.8 (3.5-5.6cm)Aortic Root2.8 (2.0-3.7cm) PWd1.3 (0.7-1.1cm)Aortic Cusp Exc.1.7 (1.5-2.0cm) LVDs3.1 (2.5-4.0cm) PWs1.7 cm Normal left ventricular chamber size, systolic function and wall motion. Left ventricular ejection fraction estimated to be 60 %. No evidence of left ventricular hypertrophy. Anterior Echo-free space, may be due to pericardial fat or effusion. Moderate left atrial enlargement. Right cardiac chamber sizes are moderately enlarged. Mild focal aortic valve sclerosis with adequate cusp excursion. Mildly thickened mitral valve leaflets with normal excursion. Mild mitral annulus and aortic root calcification. Pulmonic valve not well visualized. Normal tricuspid valve structure. IVC dilated at 2.5 cm with slight physiologic collapse suggestive of RA pressure 20 mmHg. A color flow and spectral Doppler study was performed and revealed: Trace aortic regurgitation. Moderate mitral regurgitation. Mitral inflow indicates normal left ventricular diastolic function. Moderate to severe tricuspid regurgitation. Tricuspid systolic velocities suggests peak right ventricular systolic pressure of 69 mmHg, consistent with severe pulmonary hypertension. No pulmonic regurgitation present.
--- NOTE | 2016-07-12 14:58 | Cardiology Report ---
APPROVED REPORT EKG Measurement Heart [id number] Normal sinus rhythm Possible Left atrial enlargement Borderline ECG
== END 2016-07-07 16:40 | disposition home or self-care (01) | DRG 194 ==
LOC: EDBD 14:38 → EMR 15:08 → 2E 16:18 → EDBEDREQ 16:27 → EMR 19:25
DX: J18.9 Pneumonia, unspecified organism (principal); J45.901 Unspecified asthma with (acute) exacerbation; I27.2 Other secondary pulmonary hypertension; I07.1 Rheumatic tricuspid insufficiency; R07.9 Chest pain, unspecified; R00.0 Tachycardia, unspecified; Z88.6 Allergy status to analgesic agent; Z88.0 Allergy status to penicillin; Z88.8 Allergy status to other drugs, medicaments and biological substances
CPT/HCPCS: 36415; 71010; 71275; 78579; 78580; 80053; 81025; 82550; 82553; 82962; 83036; 83735; 84100; 84484; 85007; 85025; 85379; 86710; 87040; 87070; 87205; 93005; 93306; 94640; 94664; A9503; J1815; J7620